=== PATIENT | female | born 1965 | race African-American/Black ===

== ENCOUNTER 2020-08-16 11:03 | Emergency (ER) | payer MEDICAID ==
[~2020-08-16] VITALS: Ht 162.6 cm; Wt 62.0 kg
[2020-08-16 11:05] VITALS: BP 152/94
[2020-08-16] MEDS ORDERED: ACETAMINOPHEN 325MG TABLET PO STA (12:24)
[2020-08-16 13:27] LABS: *AMPHETAMINES SCREEN URINE NEGATIVE (NEGATIVE); *BARBITURATES SCREEN URINE NEGATIVE (NEGATIVE); *BENZODIAZEPINES SCREEN URINE NEGATIVE (NEGATIVE); *COCAINE SCREEN URINE NEGATIVE (NEGATIVE); METHADONE URINE SCREEN NEGATIVE (NEGATIVE)
[2020-08-16 13:29] LABS: CANNABINOID URINE SCREEN NEGATIVE (NEGATIVE); OPIATES URINE SCREEN NEGATIVE (NEGATIVE); PHENCYCLIDINE URINE SCREEN NEGATIVE (NEGATIVE)
== END 2020-08-16 13:12 | disposition left against medical advice (07) ==
LOC: ER 11:03
DX: R07.89 Other chest pain (principal); M79.674 Pain in right toe(s); I50.9 Heart failure, unspecified
CPT/HCPCS: 71045; 80305; 93005; 99285

== ENCOUNTER 2024-01-17 12:03 | Emergency (ER) | payer MEDICAID ==
[~2024-01-17] VITALS: Ht 162.6 cm; Wt 64.0 kg
[2024-01-17 12:06] VITALS: O2SAT 98
[2024-01-17] MEDS ORDERED: ACET-2708 MT (13:19)
[2024-01-17] MEDS: ACETAMINOPHEN 325MG TABLET PO ONE (13:49)
[2024-01-17] MEDS: IBUPROFEN 800MG TABLET PO ONE (13:49)
[2024-01-17 13:50] VITALS: BP 147/72; PULSE 62; RESP 18; TEMP 97.7
[2024-01-17] MEDS ORDERED: TOPUD MT (14:13)
== END 2024-01-17 13:52 | disposition home or self-care (01) ==
LOC: ER 12:40
DX: S20.212A Contusion of left front wall of thorax, initial encounter (principal); I11.0 Hypertensive heart disease with heart failure; I50.9 Heart failure, unspecified; W22.8XXA Striking against or struck by other objects, initial encounter; Y93.89 Activity, other specified; Y92.811 Bus as the place of occurrence of the external cause; Y99.8 Other external cause status
CPT/HCPCS: 71101; 99283